=== PATIENT | female | born 2000 | race Caucasian/White ===

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

== ENCOUNTER 2018-08-17 17:47 | Emergency (ER) | payer BC ==
--- OUTSIDE RECORDS SUMMARY | 2018-08-17 17:55 | XMS REPORT | Continuity of Care Document ---
:2000 External Reference #:[id number] Author Name Eriberto Grossman MD Address [address] [place] [address] Care Team Providers Name Role Phone KIKE Almendarez Care Team Information Excellence Coach Unavailable Payers Type Date Identification Numbers Payment Provider Subscriber Expires: Policy Number: [id number] [place] [address] Insurance Marleny Borjas 2012 Fund Group Number: [id number] [place] [address] Effective: 2012 Policy Number: Excell DOMINIC Marleny Kellyjim [id number] Expires: 2013 Group Name: Cierra Wright [address] PayID: [id number] FERNANDO French [address] Effective: 2013 Policy Number: Sudheer DOMINIC Marleny Borjas [id number] Expires: 2015 Group Name: [employer]Joann [address] PayID: [id number] FERNANDO French [address] Policy Number: [id number] Sudheer DOMINIC Karina Borjas Group Number: [id number] 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 Spends time with dad every 1-2 months, he lives in [place]. Smoke-Free Home is not smoke-free Smoke-Free , Mom smokes outside. Pets 1 cat Tobacco Use Start: Unknown Never Smoked Cigarettes ETOH Use Denies alcohol use Recreational Drug Use Denies Drug Use Tobacco Use Start: Unknown Patient has never smoked Enjoy Exercising Enjoys exercising Currently Active Has never engaged in sexual activity Allergies, Adverse Reactions, Alerts Description No Known Drug Allergies Medications Medication Date Status Form Strength Qnty SIG Indications Ordering Provider Clindamycin 08/02/ Active Lotion 1% 60ml apply pea Nadira Phosphate 2012 sized Terry, amount to FORMULA CLERK-C face before bed for acne Sumatriptan 07/01/ Active Solution 20mg/Act 2bottl [address] [facility] 2011 es into [facility] Colon, at onset FORMULA CLERK-C of migraine if needed, may repeat in 2 hours if headache returns, no more than 2 doses/day Tylenol 07/01/ Active Tablets 325mg 2 [facility] migraine R. Isaiah, FORMULA CLERK-C Ibuprofen 07/01/ Active Tablets 200mg 2 po q6hr [facility] 2011 prn pain R. Isaiah, FORMULA CLERK-C Zyrtec 02/26/ Active Tablets 10mg 30tabs one qhs 472.0 Phillip 2006 Nae Palomares Amoxicillin 02/17/ Hx Tablets 875mg 20tabs 1 by mouth 461.0 Stacy 2014 - twice a K.W. 05/03/ day for 10 David, 2015 days M.D. Zithromax 02/06/ Hx Tablets 250mg 6tabs two po qd Gissel Meraz 2011 - today and P. 07/01/ then one Blegen, 2011 po qd for M.D. 4 days Maxalt-FILTER TIP CATCHER 02/04/ Hx Tablets 10mg one po at 784.0 Roscoejean 2010 - Dispers onset of [place] Colon, 07/01/ migraine, FORMULA CLERK-C 2011 may repeat in 2 hours if needed, no more than 3 pills in 24 hours Zithromax 11/25/ Hx Tablets 250mg 6tabs two po qd Gissel Meraz 2006 - first day P. 10/06/ and then Blegen, 2007 one po qd M.D. for 4 days Zithromax 02/20/ Hx Suspension 200mg/5 ML QS 1 01/31 KAYLA Fisher 2005 - PO Today Jelani, 05/21/ Then 4 ML M.D. 2006 PO qd For 4 Days Amoxicillin 01/27/ Hx Chewtabs 400mg 40unit 2 bid x 10 381.01 Phillip 2005 - s evgeny Palomares, 04/27/ MWinifred 2005 Medications Administered in Office Medication Date Status Form Strength Qnty SIG Indications Ordering Provider TB,Intradermal Administered Injection Marium Boyle (PPD, Mantoux) 014 Storm, FORMULA CLERK-C Immunizations CPT Code Status Date Vaccine Lot # [id number] Given 06/04/2017 HPV Vaccine, Gardasil [id number] 19404 Given 07/07/2016 HPV Vaccine 9 (Gardasil 9), 3 Dose [id number] 60075 Given 07/07/2016 Menb - Serogroup B Meningococcal Vaccine(Trumenba) [id number] 96412 Given 05/30/2016 HPV Vaccine 9 (Gardasil 9), 3 Dose [id number] 26266 Given 05/13/2016 Menactra (meningococcal conjugate vaccine) [id number] 55331 Given 05/13/2016 Menb - Serogroup B Meningococcal Vaccine(Trumenba) [id number] 38816 Given 10/10/2015 Influenza Virus Vaccine, Quadrivalent, 3 Yr > [id number] Quad, Preserv Free 32507 Given 07/28/2014 Varicella (Chicken Pox) Vaccine [id number] 33513 Given 12/15/2013 Influenza Vaccine-Preservative Free 3 Yrs And [id number] Above 50198 Given 08/02/2013 Hepatitis A (Ped) 2 Dose Schedule [id number] 79968 Given 07/01/2012 Menactra (meningococcal conjugate vaccine) [id number] 97860 Given 07/01/2012 Varicella (Chicken Pox) Vaccine [id number] 79311 Given 07/01/2012 Hepatitis A (Ped) 2 Dose Schedule [id number] 60980 Given 05/24/2009 Tdap (Adacel) [id number] 11552 Given 09/28/2003 DTaP (Daptacel) 31785 Given 09/28/2003 MMR (Measles,Mumps,Rubella) 87863 Given 09/28/2003 Inactivated Polio Vaccine, Injectable (Ipol) 00512 Given 09/11/1999 DTaP (Daptacel) 53324 Given 06/10/1999 MMR (Measles,Mumps,Rubella) 42105 Given 02/18/1999 Hep B Vaccine, Ped/Adol Dose 3 Dose (Engerix or Recombivax) 39981 Given 1998 DTaP(Tripedia)/Hib, Combined 38788 Given 1998 Opv (Poliovirus,Oral) 70002 Given 1998 Hep B Vaccine, Ped/Adol Dose 3 Dose (Engerix or Recombivax) 31962 Given 1998 DTaP(Tripedia)/Hib, Combined 33810 Given 1998 Opv (Poliovirus,Oral) 63337 Given 1998 Hep B Vaccine, Ped/Adol Dose 3 Dose (Engerix or Recombivax) 53367 Given 1998 DTaP(Tripedia)/Hib, Combined 30070 Given 1998 Opv (Poliovirus,Oral) Vital Signs Date Vital Result Comment 08/14/2018 10:06am Weight 126.00 lb Weight 57.154 kg BP Systolic 112 mmHg BP Diastolic 68 mmHg Heart Rate 91 /min Body Temperature 98.1 F Respiratory Rate 16 /min O2 % BldC Oximetry 98 % 05/13/2016 2:36pm Weight 130.00 lb Weight 58.968 kg BP Systolic 107 mmHg BP Diastolic 70 mmHg Heart Rate 108 /min Height 66.25 inches 5'6.25" Height Percentile 79 % Weight Percentile 62nd BMI (Body Mass Index) 20.8 kg/m2 Body Mass Index Percentile 44 % Right Visual Acuity Distance 20/20 Not corrected Left Visual Acuity Distance 20/20 Not corrected Both Visual Acuity Distance 20/20 Not corrected 05/03/2015 4:18pm Weight 126.00 lb Weight 57.154 kg BP Systolic 100 mmHg BP Diastolic 74 mmHg Heart Rate 56 /min Weight Percentile 59th 04/05/2015 4:15pm Weight 127.00 lb Weight 57.607 kg BP Systolic 100 mmHg BP Diastolic 60 mmHg Heart Rate 72 /min Weight Percentile 61st 02/17/2015 10:31am Weight 131.00 lb Weight 59.422 kg BP Systolic 100 mmHg BP Diastolic 60 mmHg Heart Rate 110 /min Body Temperature 98.9 F Tylenol AT 10:22Am Weight Percentile 68th O2 % BldC Oximetry 98 % 07/28/2014 2:08pm Weight 123.00 lb Weight 55.793 kg BP Systolic 90 mmHg BP Diastolic 60 mmHg Heart Rate 98 /min Height 67 inches 5'7" Height Percentile 88 % Weight Percentile 57th BMI (Body Mass Index) 19.3 kg/m2 Body Mass Index Percentile 33 % Right Visual Acuity Distance 20/20 Left Visual Acuity Distance 20/20 Both Visual Acuity Distance 20/20 Last Menstrual Period [id number] 08/02/2013 10:49am Weight 113.00 lb Weight 51.257 kg BP Systolic 100 mmHg BP Diastolic 70 mmHg Heart Rate 96 /min Height 66 inches 5'6" Height Percentile 80 % Weight Percentile 45th BMI (Body Mass Index) 18.2 kg/m2 Body Mass Index Percentile 25 % Right Visual Acuity Distance 20/20 Left Visual Acuity Distance 20/20 Both Visual Acuity Distance 20/20 07/01/2012 10:59am Weight 114.00 lb Weight 51.710 kg BP Systolic 100 mmHg BP Diastolic 70 mmHg Heart Rate 92 /min Height 66 inches 5'6" Height Percentile 85 % Weight Percentile 58th BMI (Body Mass Index) 18.4 kg/m2 Body Mass Index Percentile 35 % Right Visual Acuity Distance 20/20 Left Visual Acuity Distance 20/20 Both Visual Acuity Distance 20/20 Last Menstrual Period 0 02/04/2011 2:50pm Weight 111.00 lb Weight 50.350 kg BP Systolic 102 mmHg BP Diastolic 62 mmHg Heart Rate 80 /min Height 64 inches 5'4" Height Percentile 84 % Weight Percentile 72nd BMI (Body Mass Index) 19.1 kg/m2 Body Mass Index Percentile 57 % Right Visual Acuity Distance 20/20 Left Visual Acuity Distance 20/20 Both Visual Acuity Distance 20/20 Last Menstrual Period 0 04/19/2010 3:44pm Weight 110.00 lb Weight 49.896 kg BP Systolic 90 mmHg BP Diastolic 70 mmHg Heart Rate 88 /min Height 63 inches 5'3" Height Percentile 90 % Weight Percentile 81st BMI (Body Mass Index) 19.5 kg/m2 Body Mass Index Percentile 69 % 11/08/2009 3:24pm Weight 106.00 lb Weight 48.082 kg BP Systolic 102 mmHg BP Diastolic 62 mmHg Heart Rate 88 /min Height 61.5 inches 5'1.50" Height Percentile 88 % Weight Percentile 84th BMI (Body Mass Index) 19.7 kg/m2 Body Mass Index Percentile 76 % 10/06/2008 9:22am Weight 108.00 lb Weight 48.989 kg Body Temperature 97.1 F oral Weight Percentile 96th 11/25/2007 9:38am Weight 97.50 lb Weight 44.226 kg BP Systolic 112 mmHg BP Diastolic 64 mmHg Heart Rate 98 /min Body Temperature 98.5 F Weight Percentile >97th 02/26/2007 9:33am Weight 88.00 lb Weight 39.917 kg Body Temperature 97.1 F Weight Percentile >95th 02/20/2006 12:59pm Weight 73.00 lb Weight 33.113 kg Body Temperature 99.4 F Weight Percentile 95th 01/27/2006 2:39pm Weight 73.00 lb Weight 33.113 kg Body Temperature 98.7 F Height 52.25 inches 4'4.25" Height Percentile 88 % Weight Percentile >95th BMI (Body Mass Index) 18.8 kg/m2 Body Mass Index Percentile 94 % Results Test Date Facility Test Result H/L Range Note CBC Auto Diff 07/04/2017 [facility] White Blood 5.2 10^3/uL 3.5-10.8 [phone] Count Red Blood Count 4.17 10^6/uL 4.0-5.4 Hemoglobin 12.7 g/dL 12.0-16.0 Hematocrit 38 % 35-47 Mean Corpuscular Volume 90 fL 80-97 Mean Corpuscular Hemoglobin 31 pg 27-31 Mean Corpuscular HGB Conc 34 g/dL 31-36 Red Cell Distribution Width 12 % 10.5-15 Platelet Count 315 10^3/uL 150-450 Mean Platelet Volume 7 um3 Low 7.4-10.4 Abs Neutrophils 4.2 10^3/uL 1.5-7.7 Abs Lymphocytes 0.7 10^3/uL Low 1.0-4.8 Abs Monocytes 0.1 10^3/uL 0-0.8 Abs Eosinophils 0.1 10^3/uL 0-0.6 Abs Basophils 0.1 10^3/uL 0-0.2 Abs Nucleated RBC 0 10^3/uL Granulocyte % 80.3 % 38-83 Lymphocyte % 14.2 % Low 25-47 Monocyte % 2.7 % 1-9 Eosinophil % 1.3 % 0-6 Basophil % 1.5 % 0-2 Nucleated Red Blood Cells % 0 Comp Metabolic Panel 07/04/2017 [facility] Sodium 134 mmol/L 133-145 [phone] Potassium 3.0 mmol/L Low 3.5-5.0 Chloride 102 mmol/L 101-111 Co2 Carbon Dioxide 19 mmol/L Low 22-32 Anion Gap 13 mmol/L High 2-11 Glucose 138 mg/dL High 70-100 Blood Urea Nitrogen 5 mg/dL Low 6-24 Creatinine 0.69 mg/dL 0.51-0.95 BUN/Creatinine Ratio 7.2 Low 8-20 Calcium 9.0 mg/dL 8.6-10.3 Total Protein 7.3 g/dL 6.4-8.9 Albumin 4.5 g/dL 3.2-5.2 Globulin 2.8 g/dL 2-4 Albumin/Globulin Ratio 1.6 1-3 Total Bilirubin 1.20 mg/dL High 0.2-1.0 Alkaline Phosphatase 51 U/L 34-104 Alt 14 U/L 7-52 Ast 22 U/L 13-39 Egfr Non- 109.6 >60 Egfr 141.0 >60 1 Laboratory test 07/04/2017 [facility] Alcohol 149 mg/ dL High <10 finding [phone] Laboratory test 10/06/2008 In House Lab Strep Screen neg Neg finding (607)- - Laboratory test 11/25/2007 In House Lab Strep Screen NEG Neg finding (607)- - Laboratory test 04/06/2007 [facility] Throat-Beta NGNBS 2 finding [phone] Strep Culture 1 Because ethnic data is not always readily available, this report includes an eGFR for both -Americans and non- Americans. The National Kidney Disease Education Program (NKDEP) does not endorse the use of the MDRD equation for patients that are not between the ages of 18 and 70, are , have extremes of body size, muscle mass, or nutritional status, or are non- or non-. According to the National Kidney Foundation, irrespective of diagnosis, the stage of the disease is based on the level of kidney function: Stage Description GFR(mL/min/1.73 m(2)) 1 Kidney damage with normal or decreased GFR 90 2 Kidney damage with mild decrease in GFR 60-89 3 Moderate decrease in GFR 30-59 4 Severe decrease in GFR 15-29 5 Kidney failure <15 (or dialysis) 2 NEGATIVE FOR GROUP A STREP Procedures Date Code Description Status 04/05/2015 14505 Destruction,Benign Lesions, Up To 14 Lesions Completed Encounters Type Date Location Provider Dx Diagnosis Office Visit 05/13/2016 Main Office Nadira Stewart, Z00.129 Encntr for routine 3:00p FORMULA CLERK-C child health exam w/o abnormal findings Z23 Encounter for immunization Office Visit 05/03/2015 4:15p Main Office Marium Colon, 078.10 Viral Warts Unspec FORMULA CLERK-C Office Visit 02/17/2015 10:30a Main Office Stacy Flynn 461.0 Sinusitis Acute Nae Hernandez Maxillary 382.02 Otitis Media Acute Suppurative Diseases Class Elsewhere Office Visit 07/28/2014 2:15p Main Office Marium Colon, V20.2 Routine Infant Or FORMULA CLERK-C Child Health Check V05.4 Varicella Vaccination & Inoculation Office Visit 08/02/2013 10:45a Main Office Marium Colon, V20.2 Routine Or FORMULA CLERK-C Child Health Check V05.3 Viral Hepatitis Vaccination & Inoculation 706.1 Acne Other Office Visit 07/01/2012 11:00a Main Office Marium Colon, V20.2 Routine Infant Or FORMULA CLERK-C Child Health Check 346.91 Migraine Unspec W/ Intractable V03.89 Bacterial Diseases Single Vaccination Spec Other V05.3 Viral Hepatitis Vaccination & Inoculation V05.4 Varicella Vaccination & Inoculation Office Visit 02/04/2011 3:00p Main Office Marium Colon, V20.2 Routine Or FORMULA CLERK-C Child Health Check 784.0 Headache Office Visit 04/19/2010 3:15p Main Office Debra Diamond, V58.32 Encounter For PA-C Removal Of Sutures Office Visit 11/08/2009 3:00p Main Office Lynda Lutz V20.2 Routine Infant Or Lorena Rosenberg.Jim.P.C. Child Health Check 346.10 Migraine Common W/O Intractable Office Visit 10/06/2008 9:15a Main Office Marium Boyle 465.9 URI Upper Storm, FORMULA CLERK-C Respiratory Infections Acute Unspec Sites Office Visit 11/25/2007 9:45a Main Office Gissel Roberts.01 Otitis Media Toby Wells M.D. Acute 465.9 URI Upper Respiratory Infections Acute Unspec Sites Office Visit 02/26/2007 9:30a Main Office Phillip Palomares M.D. 472.0 Rhinitis Chronic Office Visit 02/20/2006 12:30p Main Office Phillip Palomares M.D. 461.9 Sinusitis Acute Unspec Office Visit 01/27/2006 2:30p Main Office Phillip Palomares M.D. 381.01 Otitis Media Serous Acute Plan of Treatment 08/14/2018 - Eriberto Grossman, MDS93.402S Sprain of unspecified ligament of left ankle, sequelaNew Xrays:Ankle Xray, 2 Views, Ordered: 08/14/18Comments:She needs an x-ray according to the [place] ankle rules. sent to [facility]. Advised as below.Recommendations:-Ice -Aircast -X-ray -Weight bearing as tolerated -Ankle stretching -OTC pain meds
[2018-08-17 18:04] VITALS: BP 104/73
--- NOTE | 2018-08-17 19:09 | UC ---
Lower Extremity/Ankle HPI - HPI Summary HPI Summary: LEFT ANKLE PAIN X 5 DAYS INVERSION INJURY TO LEFT ANKLE + PAIN AND SWELLING OF LEFT ANKLE WAS SEEN BY HER PCP , NORMAL XRAY , WAS PLACED ON AIRCAST CONCERN ABOUT BRUISING ON HER TOES AND FEET - History of Current Complaint Chief Complaint: UCLowerExtremity Stated Complaint: ANKLE INJURY Time Seen by Provider: 08/17/18 18:09 Hx Obtained From: Patient Hx Last Menstrual Period: 08/09/18 ?: No Onset/Duration: Sudden Onset, Lasting Days - 5, Still Present Severity Initially: Moderate Severity Currently: Moderate Pain Intensity: 0 Pain Scale Used: 0-10 Numeric Aggravating Factor(s): Standing, Ambulation Alleviating Factor(s): Rest, Elevation, Ice Able to Bear Weight: Yes - Allergies/Home Medications Allergies/Adverse Reactions: Allergies Allergy/AdvReac Type Severity Reaction Status Date / Time No Known Allergies Allergy Verified 08/17/18 18:04 Home Medications: Home Medications NK [No Home Medications Reported] 08/17/18 [History Confirmed 08/17/18] PMH/Surg Hx/FS Hx/Imm Hx Previously Healthy: Yes - Surgical History Surgical History: None Surgery Procedure, Year, and Place: denies - Family History Known Family History: Positive: Cardiac Disease, Other - Cancer - Social History Alcohol Use: Occasionally Substance Use Type: None Smoking Status (MU): Never Smoked Tobacco Review of Systems Constitutional: Negative Skin: Negative Eyes: Negative ENT: Negative Respiratory: Negative Cardiovascular: Negative Gastrointestinal: Negative Is Patient Immunocompromised?: No All Other Systems Reviewed And Are Negative: Yes Physical Exam Triage Information Reviewed: Yes Appearance: Well-Appearing, No Pain Distress, Well-Nourished Vital Signs: Initial Vital Signs Temp 98.5 F 08/17/18 18:00 Pulse 42 08/17/18 18:00 Resp 16 08/17/18 18:00 BP 104/73 08/17/18 18:00 Pulse Ox 94 08/17/18 18:00 Vital Signs Reviewed: Yes Eye Exam: Normal Eyes: Positive: Conjunctiva Clear ENT: Positive: Normal ENT inspection, Hearing grossly normal, Pharynx normal Neck: Positive: Supple, Nontender, No Lymphadenopathy Respiratory: Positive: Chest non-tender, Lungs clear, Normal breath sounds, No respiratory distress Cardiovascular: Positive: RRR, No Murmur, Pulses Normal Musculoskeletal: Positive: Other: - LEFT ANKLE : + SWELLING LATERAL ANKLE, + TENDERNESS LATERAL ANKLE, + BRUISING OF THE TOES AND HEEL, STABE LATEAL LIGAMENTS Lower Extremity Course/Dx - Differential Dx/Diagnosis Provider Diagnoses: LEFT ANKLE SPRAIN Discharge - Sign-Out/Discharge Documenting (check all that apply): Patient Departure All imaging exams completed and their final reports reviewed: No Studies - Discharge Plan Condition: Stable Disposition: HOME Patient Education Materials: Ankle Sprain (ED) Referrals: Phillip Palomares MD [Primary Care Provider] - 2 Weeks - Billing Disposition and Condition Condition: STABLE Disposition: Home
== END 2018-08-17 18:22 | disposition home or self-care (01) ==
LOC: UCEAST 17:47
DX: S93.402A Sprain of unspecified ligament of left ankle, initial encounter (principal); X50.1XXA Overexertion from prolonged static or awkward postures, initial encounter; Y93.9 Activity, unspecified; Y92.9 Unspecified place or not applicable
CPT/HCPCS: 99211; G0463

== ENCOUNTER 2019-10-12 17:05 | Emergency (ER) | payer SELFPAY ==
[2019-10-12 18:55] VITALS: BP 00/00
== END 2019-10-12 18:54 | disposition left against medical advice (07) ==
LOC: ED 17:05
DX: Z53.21 Procedure and treatment not carried out due to patient leaving prior to being seen by health care provider (principal); M79.602 Pain in left arm
CPT/HCPCS: 99282